=== PATIENT | female | born 1985 | race Caucasian/White ===

== ENCOUNTER 2021-07-08 13:11 | Emergency (ER) | payer OTHER, SELFPAY ==
[2021-07-08 13:16] VITALS: BP 136/80; PULSE 72; RESP 16; TEMP 36.6
--- NOTE | 2021-07-08 14:43 | ED.ANXIETY ---
HPI - Anxiety General Chief Complaint: Anxiety Stated Complaint: anxiety attack Time Seen by Provider: 07/08/21 14:03 Source: patient and RN notes reviewed Mode of arrival: ambulatory Limitations: no limitations History of Present Illness HPI narrative: 35 years old white female presents with sudden onset of hyperventilation, aches left upper extremity, jittery inside, shaking outside, lightheadedness numbness of the face. Started 1-1/2-hour prior to arrival, currently is improving. History of similar symptoms secondary to anxiety. Patient used to be on antianxiety medication which he is not taking for the last few months, boyfriend reported that patient going through a lot of stress lately. Mainly at work. Patient denies any chest pain, back pain, headache, fever, chills, nausea, vomiting, or abdominal pain. Patient does not smoke or drink or uses drugs, history of depression and anxiety, on no medication at home Related Data Allergies Allergy/AdvReac Type Severity Reaction Status Date / Time pertussis vaccine,fluid Allergy Severe BRAIN Verified 07/08/21 13:36 SWELLING Review of Systems Review of Systems: CONSTITUTIONAL: Denies fever, chills, or sweats. EYES: Denies visual changes, redness, or discharge. ENT: Denies rhinorrhea, congestion, sore throat, or otalgia. CARDIOVASCULAR: Denies chest pain, palpitations, or edema. RESPIRATORY: Denies cough or dyspnea. GASTROINTESTINAL: Denies abdominal pain, nausea, vomiting, or diarrhea. GENITOURINARY: Denies dysuria or hematuria. SKIN: Denies rash or itching. MUSCULOSKELETAL: Denies back pain, joint pain, or myalgia. NEUROLOGIC: Denies headache, numbness, or weakness. PSYCHIATRIC: Denies anxiety or depression. PMFSH Social History Social History Smoking status: Former smoker Smoking end date: 11/29/11 Alcohol intake: current Exam Narrative: General appearance: Well-developed, well-nourished Skin: Normal color Head: Normocephalic, nontraumatic Eyes: Clear conjunctiva ENT: Oropharynx normal, ears normal, nose normal Neck: Supple, nontender Chest and respiratory: Airway patent, no respiratory distress, no accessory muscle use Heart: Regular rate/rhythm Abdomen: Soft, nontender, no organomegaly, quiet bowel sounds Vascular: Normal peripheral pulses, normal capillary refill. 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 1 mg Ativan orally ordered. Differential Diagnosis Differential diagnosis: Likely hyperventilation, panic disorder and acute anxiety Critical Care Time Critical Care Time Critical Care Time: No Discharge Plan Discharge Clinical Impression: Acute anxiety, Hyperventilation Patient Disposition: Home, Self-Care Condition: Improved Instructions: Antibiotic Form, Anxiety (ED) Additional Instructions: Return if symptoms are worsening , call your family physician for appointment, take Tylenol as as needed for aches and pain, continue home medications. Prescriptions: New clonazepam 0.25 mg tablet,disintegrating 0.25 mg PO BI
[2021-07-08] MEDS: LORazepam (*CRX) 0.5 MG TABLET 1 MG PO (14:46)
[2021-07-08 15:08] VITALS: BP 122/77; PULSE 65; RESP 16; O2SAT 100
== END 2021-07-08 15:09 | disposition home or self-care (01) ==
PROVIDERS: Emergency Provider Emergency Medicine
DX: F41.9 Anxiety disorder, unspecified (principal); R06.4 Hyperventilation; Z87.891 Personal history of nicotine dependence
CPT/HCPCS: 99283; A9270

== ENCOUNTER 2021-08-12 09:31 | Outpatient (CLI) | payer OTHER, SELFPAY ==
--- NOTE | ~2021-08-12 | XR_ITS ---
EXAMINATION: XR lumbar spine 2-3V EXAM DATE: 08/12/2021 10:01 INDICATION: Low back pain, right lower quadrant pain. TECHNIQUE: Lumber spine frontal, lateral, lateral L5-S1 projections for interpretation. There is no prior study for comparison. FINDINGS: The vertebral bodies are aligned in the AP dimension. Vertebral body and disc heights are well-maintained. Mild lower lumbar facet arthropathy. No spondylolysis. Sacrum, sacroiliac joints, sa cral arcuate lines are intact. IMPRESSION: Mild lower lumbar facet arthropathy. Reviewed, dictated and finalized at location B.
--- NOTE | ~2021-08-12 | XR_ITS ---
EXAMINATION: XR soft tissue neck EXAM DATE: 08/12/2021 10:01 INDICATION: Low Back Pain, Rlq Pain, Mass R Side Of Neck . Technologist wrote patient has ultrasound. TECHNIQUE: Frontal and lateral projections of the neck soft tissue. There is no prior study for omayra winters. FINDINGS: Film was labeled by technologist as to location of a reported right neck mass. Soft tissue in this region is unremarkable. Please note that ultrasound is more sensitive and specific for soft tissue masses than x-ray. No calcifications in the region. Lung apices are clear. There is mild disc disease at C5-6. Mild reversal of normal cervical lordosis. Mild cervical arthropathy. IMPRESSION: Mild cervical spondylosis. Unremarkable soft tissue. Reviewed, dictated and finalized at location B.
== END 2021-08-12 09:32 | disposition home or self-care (01) ==
LOC: ANHIMG 09:36
PROVIDERS: PCP Emergency Medicine; Visit Provider Emergency Medicine
DX: M54.5 Low back pain (principal); R10.31 Right lower quadrant pain; R22.1 Localized swelling, mass and lump, neck; M47.896 Other spondylosis, lumbar region; M47.812 Spondylosis without myelopathy or radiculopathy, cervical region
CPT/HCPCS: 70360; 72100

== ENCOUNTER 2021-09-09 12:13 | Outpatient (CLI) | payer OTHER, SELFPAY ==
--- NOTE | ~2021-09-09 | US_ITS ---
EXAMINATION: US thyroid DATE: 09/09/2021 13:29 INDICATION: Abnormal labs. Thyroid nodule. TECHNIQUE: Multiple ultrasound images of the thyroid were obtained. COMPARISON: None. FINDINGS: The right thyroid lobe measures 4.3 x 1.2 x 1.3 cm. The left thyroid lobe measures 3.2 x 1.2 x 1.4 c m. There is normal echotexture and echogenicity throughout the thyroid gland. No discrete nodules id entified. Normal vascular flow is present. IMPRESSION: 1. Normal thyroid. Reviewed, dictated and finalized at location A. IMPRESSION: 1. Normal thyroid.
--- NOTE | ~2021-09-09 | US_ITS ---
EXAMINATION: US pelvic complete DATE: 09/09/2021 13:33 INDICATION: Pelvic pain. TECHNIQUE: Multiple transabdominal sonographic images of the pelvis were obtained. COMPARISON: None. FINDINGS: The uterus measures 7.8 x 4.2 x 5.7 cm. There is no free fluid in the pelvis. The endometrial complex measures 9 mm in thickness. The right ovary measures 2.2 x 1.5 x 1.7 cm. The left ovary measures 2.3 x 1.8 x 1.9 cm. There is normal vascular flow in the ovaries. IMPRESSION: 1. Normal pelvis. Reviewed, dictated and finalized at location A. IMPRESSION: 1. Normal pelvis.
--- NOTE | ~2021-09-09 | US_ITS ---
EXAMINATION: US renal BI EXAM DATE: 09/09/2021 13:45 INDICATION: Right lower quadrant pain. TECHNIQUE: Multiple grayscale and Doppler images of the kidneys were obtained (by a technologist who performed the scan) and subsequently reviewed. There is no prior study for comparison. FINDINGS: Right kidney: There is normal contour and echogenicity. It measures 8.5 x 4.1 x 5.3 centimeters. Th ere are no focal renal lesions identified. There is no hydronephrosis. Left kidney: There is normal contour and echogenicity. It measures 9.2 x 5.9 x 5.2 centimeters. The re are no focal renal lesions identified. There is no hydronephrosis. Bladder unremarkable. IMPRESSION: 1. Sonographically unremarkable kidneys. Reviewed, dictated and finalized at location A.
--- NOTE | ~2021-09-09 | US_ITS ---
EXAMINATION: US abdomen limited EXAM DATE: 09/09/2021 13:27 INDICATION: Abdominal pain all over. TECHNIQUE: Multiple grayscale and Doppler images of the abdomen right upper quadrant were obtained (b y a technologist who performed the scan) and subsequently reviewed. Comparison is made to prior exami nation from 10/22/2015. FINDINGS: The pancreatic head and body are normal in appearance. The pancreatic tail is not visualized. The l iver has normal echogenicity and contour. There are no focal liver lesions identified. There is no evidence of intrahepatic biliary duct dilation. Portal venous flow was seen in the hepatopedal, nor mal direction and has normal Doppler waveform. No right-sided hydronephrosis. Common bile duct measures 3 mm, which is normal. The gallbladder wall is normal in thickness, with ex pected amount of distention. No sonographic evidence of pericholecystic fluid. There is no cholelit hiases. Technologist performing exam reports patient did not demonstrate sonographic Taveras's sign. Please note that this sign is less reliable in patients who have received pain medication. IMPRESSION: Unremarkable abdominal ultrasound exam. Reviewed, dictated and finalized at location A.
== END 2021-09-09 12:14 | disposition home or self-care (01) ==
PROVIDERS: PCP Emergency Medicine; Visit Provider Emergency Medicine
DX: R10.9 Unspecified abdominal pain (principal); E04.1 Nontoxic single thyroid nodule
CPT/HCPCS: 76536; 76705; 76775; 76856

== ENCOUNTER 2022-01-07 08:57 | Outpatient (CLI) | payer OTHER, SELFPAY ==
--- NOTE | ~2022-01-07 | XR_ITS ---
EXAMINATION: XR chest 2V EXAM DATE: 01/07/2022 09:13 INDICATION: Shortness Of Breath, pt. Denies Any Hx TECHNIQUE: Frontal and lateral projections of the chest obtained and reviewed. Comparison is made to prior examination from 01/13/2017. FINDINGS: The lungs are clear. There are no pleural effusions. The cardiomediastinal silhouette is within normal limits. There is no pneumothorax suspected. The bones and soft tissues are unremarkab le. IMPRESSION: Unremarkable chest x-ray exam. Reviewed, dictated and finalized at location B. ERN CUTTER
[2022-01-07 09:47] LABS: Cholesterol 254 mg/dL (0-200); HDL Direct 78 mg/dL; Triglycerides 90 mg/dL (<150)
[2022-01-07 10:00] LABS: LDL Cholesterol Direct 130 mg/dL
[2022-01-07 10:19] LABS: Total Triiodothyronine (T3) 1.12 NG/ML (0.97-1.69)
[2022-01-07 11:23] LABS: Free T4 Free Thyroxine 0.78 ng/mL (0.78-2.19)
[2022-01-10 05:51] LABS: Thyroid Peroxidase Antibodies <1 IU/mL (<9)
== END 2022-01-07 08:58 | disposition home or self-care (01) ==
LOC: ANHIMG 09:02
PROVIDERS: PCP Emergency Medicine; Visit Provider Emergency Medicine
DX: E78.5 Hyperlipidemia, unspecified (principal); R06.09 Other forms of dyspnea
CPT/HCPCS: 36415; 71046; 80061; 84439; 84443; 84480; 86376

== ENCOUNTER 2022-05-20 10:14 | Outpatient (CLI) | payer OTHER, SELFPAY ==
[2022-05-20 11:06] LABS: Alanine Aminotransferase 10 U/L (6-35); Albumin Level 4.5 g/dL (3.5-5.1); Alkaline Phosphatase 52 U/L (38-126); Anion Gap 4 mmol/L (8-16); Aspartate Amino Transferase 17 U/L (14-36); Bilirubin,Total 0.4 mg/dL (0.2-1.3); Blood Urea Nitrogen 12 mg/dL (7-17); Calcium 8.6 mg/dL (8.4-10.2); Carbon Dioxide 27 mmol/L (22-30); Chloride 106 mmol/L (98-107); Estimated Glomerular Filt Rate > 60; Glucose 87 mg/dL (65-110); Sodium 137 mmol/L (137-145)
[2022-05-20 11:27] LABS: Free T4 Free Thyroxine 0.76 ng/mL (0.78-2.19)
[2022-05-22 13:53] LABS: Triiodothyronine T3 Free 2.6 pg/mL (2.3-4.2)
[2022-05-23 04:24] LABS: Thyroid Peroxidase Antibodies <1 IU/mL (<9)
== END 2022-05-20 10:15 | disposition home or self-care (01) ==
LOC: ANHLAB 10:19
PROVIDERS: PCP Emergency Medicine; Visit Provider Nurse Practitioner
DX: E03.9 Hypothyroidism, unspecified (principal)
CPT/HCPCS: 36415; 80053; 84439; 84443; 84481; 86376

== ENCOUNTER 2022-05-28 10:50 | Outpatient (CLI) | payer OTHER, SELFPAY ==
--- NOTE | ~2022-05-28 | XR_ITS ---
EXAMINATION:XR cervical spine 4-5V DATE: 05/28/2022 11:02 INDICATION: Neck pain TECHNIQUE: AP, lateral, lateral swimmers and odontoid views of the cervical spine are provided. COMPARISON: 08/12/2021 FINDINGS: There is reversal of normal cervical lordosis. Bone alignment is normal. The odontoid is in tact. No fracture is identified. There is unchanged mild loss of intervertebral disc space height at C5-6. The vertebral body heights are maintained. Prevertebral soft tissues are normal. IMPRESSION: 1. Mild cervical spondylosis without acute findings or significant interval change. Reviewed, dictated and finalized at location F. IMPRESSION: 1. Mild cervical spondylosis without acute findings or significant interval salvador e.
== END 2022-05-28 10:51 | disposition home or self-care (01) ==
LOC: ANHIMG 10:52
PROVIDERS: PCP Emergency Medicine; Visit Provider Emergency Medicine
DX: M47.812 Spondylosis without myelopathy or radiculopathy, cervical region (principal)
CPT/HCPCS: 72050

== ENCOUNTER 2022-06-04 11:50 | Emergency (ER) | payer OTHER, SELFPAY ==
--- NOTE | ~2022-06-04 | XR_ITS ---
EXAMINATION: XR chest 2V DATE: 06/04/2022 12:52 INDICATION: Heart palpitations, left-sided jaw pain TECHNIQUE: Frontal and lateral views of the chest are obtained COMPARISON: 01/07/2022 FINDINGS: The lungs are free of acute opacities. No pleural effusion or pneumothorax. The cardiomedia stinal silhouette is normal. There is mild S-shaped curvature of the thoracic spine. IMPRESSION: 1. No acute cardiopulmonary abnormality. Reviewed, dictated and finalized at location B.
[2022-06-04 12:05] VITALS: PULSE 67; RESP 15; O2SAT 98
[2022-06-04 12:06] VITALS: BP 137/78; PULSE 67; RESP 12; O2SAT 99
--- NOTE | 2022-06-04 12:07 | ECG_ITS ---
Measurements Intervals [place] Rate: 66 P: 65 ND: 151 QRS: 13 QRSD: 85 T: 46 QT: 394 QTc: 415 Interpretive Statements SINUS RHYTHM NORMAL ECG Electronically Signed On 06-04-2022 13:03:54 CDT by Jorge Hall D.O.
--- NOTE | 2022-06-04 12:12 | PC.NURSE ---
PT REPORTS TO ERP ABOUT PAPLPITATIONS AND NEAR SYNCOPE THEN INFORMS HIM OF BEING TREATED FOR MIGRAINES AND AND HAVING A HERNANDEZ FOR SEVERAL DAYS. PT IS NOT IN ANY DISTRESS, SKIN PWD AND GAIT WAS STEADY, NSR ON MONITOR.
[2022-06-04] MEDS: SODIUM CHLORIDE 0.9% IV 1,000 ML 999 ML IV CONT (12:52)
[2022-06-04] MEDS: diphenhydrAMINE HCl INJ 50 MG/ML VIAL 25 MG IV PUSH (12:52)
[2022-06-04] MEDS: METOCLOPRAMIDE HCL INJ 10 MG/2 ML VIAL IV PUSH (12:52)
[2022-06-04] MEDS: KETOROLAC 30 MG/ML VIAL (*BKC) IV PUSH (12:52)
[2022-06-04 12:54] LABS: Basophils Absolute Auto 0.1 K/mm3 (0.0-0.1); Eosinophils Absolute Auto 0.1 K/mm3 (0-0.3); Eosinophils Percent Auto 1.7 % (0-4.4); Hematocrit 42.3 % (37.0-47.0); Hemoglobin 13.6 g/dL (12.0-15.0); Immature Granulocyte Absolute 0.02 K/mm3 (0.00-0.031); Immature Granulocyte Percent A 0.3 % (0-0.5); Lymphocytes Absolute Auto 1.85 K/mm3 (0.9-3.2); Lymphocytes Percent Auto 25.8 % (18.3-44.2); Mean Corpuscular HGB Conc 32.2 g/dl (32-36); Mean Corpuscular Hemoglobin 28.2 pg (26-34); Mean Corpuscular Volume 87.6 fl (80-100); Mean Platelet Volume 10.1 fl (7.4-10.4); Monocytes Absolute Auto 0.4 K/mm3 (0.1-0.6); Monocytes Percent Auto 6.1 % (2.6-8.5); Neutrophils Absolute Auto 4.7 K/mm3 (1.3-6.7); Neutrophils Percent Auto 65.1 % (45.5-73.1); Platelet Count Result 227 k/mm3 (150-375); Red Blood Count 4.83 M/mm3 (4.2-5.4); Red Cell Distribution Width 13.1 % (11.5-14.5); White Blood Count 7.2 K/mm3 (4.5-10.0)
[2022-06-04 13:08] LABS: Anion Gap 4 mmol/L (8-16); Blood Urea Nitrogen 12 mg/dL (7-17); Calcium 8.7 mg/dL (8.4-10.2); Carbon Dioxide 28 mmol/L (22-30); Chloride 105 mmol/L (98-107); Estimated CRCL calculation 78 ml/min; Estimated Glomerular Filt Rate > 60; Glucose 88 mg/dL (65-110); Potassium 4.1 mmol/L (3.4-5.0); Sodium 137 mmol/L (137-145)
--- NOTE | 2022-06-04 13:18 | ED.ARRPALP ---
HPI - Arrhythmia/Palpitations General Chief Complaint: Arrhythmia/Palpitations Stated Complaint: palpations Time Seen by Provider: 06/04/22 11:58 History of Present Illness HPI narrative: Patient is a 36-year-old female who presents ER with multiple complaints. Main issue is that today when she woke up she became very dizzy and felt like her heart was racing. It lasted for a matter of seconds and then improved. She then developed some muffled hearing in her left ear. No sinus congestion or sore throat or productive cough. No focal weakness in arm or leg. No slurred speech. No chest pain or chest pressure. She does report history of anxiety but does not think she had a panic attack. She reports over the last 2 days she has not been eating or drinking well nor she been sleeping well. She reports she has had a throbbing headache on the left side consistent with her migraines. She has not any pain medication. Patient reports she had some coffee today but no other food. Related Data Allergies Allergy/AdvReac Type Severity Reaction Status Date / Time pertussis vaccine,fluid Allergy Severe BRAIN Verified 07/08/21 13:36 SWELLING Review of Systems Review of Systems: All systems reviewed & are unremarkable except as noted in HPI and below Constitutional: Constitutional: Denies chills, Reports fatigue and Denies fever(s) Eyes: Eyes: Denies change in vision ENT: Denies nasal congestion and Denies sore throat Comments: Muffled hearing left ear Cardiovascular: Cardiovascular: Denies chest pain, Reports rapid heart rate and Denies radiating jaw, neck or arm pain Respiratory: Respiratory: Denies cough, Denies dyspnea and Denies wheezing Gastrointestinal: Gastrointestinal: Denies abdominal pain, Denies nausea and Denies vomiting Neurologic: Denies syncope, Reports headache(s), Denies focal weakness and Denies numbness PMFSH Past Medical History Medical History (Updated 06/04/22 @ 13:52 by Clinton Gar MD) Anxiety Depression Hypothyroidism Migraine headache Surgical History Surgical History (Updated 06/04/22 @ 13:23 by Clinton Gar MD) No pertinent past surgical history Social History Social History Smoking status: Former smoker Smoking end date: 11/29/11 Alcohol intake: current Exam Narrative: GENERAL: Well-appearing, well-nourished, and in no acute distress. HEAD: Normocephalic, atraumatic. ENT: TMs normal bilaterally. Ear canals free of cerumen. NECK: Supple. CHEST: Clear to auscultation. No respiratory distress. HEART: Regular rate and rhythm. No murmur heard. Normal peripheral pulses. ABDOMEN: Soft, nontender, nondistended. EXTREMITIES: Normal range of motion. No edema. SKIN: Warm, dry, no rash. NEURO: Alert and oriented x3. PSYCH: Normal mood and affect. Course Course Emergency Course: Patient feels much better. Migraine resolved. Discharge home. Vital Signs Vital signs: Vital Signs Pulse Rate 67 06/04/22 12:05 Respiratory Rate 15 06/04/22 12:05 Pulse Oximetry 98 06/04/22 12:05 Pulse Rate 67 06/04/22 12:06 Respiratory Rate 12 06/04/22 12:06 Blood Pressure 137/78 06/04/22 12:06 Pulse Oximetry 99 06/04/22 12:06 MDM - Arrhythmia/Palpitations Lab Data Result diagrams: 06/04/22 12:45 06/04/22 12:45 Labs: Lab Results 06/04/22 06/04/22 Range/Units 12:45 12:45 WBC 7.2 (4.5-10.0) K/mm3 RBC 4.83 (4.2-5.4) M/mm3 Hgb 13.6 (12.0-15.0) g/dL Hct 42.3 (37.0-47.0) % MCV 87.6 (80-100) fl MCH 28.2 (26-34) pg MCHC 32.2 (32-36) g/dl RDW 13.1 (11.5-14.5) % Plt Count 227 (150-375) k/mm3 MPV 10.1 (7.4-10.4) fl Immature Gran % (Auto) 0.3 (0-0.5) % Neut % (Auto) 65.1 (45.5-73.1) % Lymph % (Auto) 25.8 (18.3-44.2) % [place] % (Auto) 6.1 (2.6-8.5) % Eos % (Auto) 1.7 (0-4.4) % Baso % (Auto) 1.0 (0.2-1.2)
[2022-06-04 14:01] VITALS: BP 109/70; PULSE 62; RESP 16; O2SAT 97
== END 2022-06-04 14:02 | disposition home or self-care (01) ==
PROVIDERS: Emergency Provider Emergency Medicine; PCP Emergency Medicine
DX: R00.2 Palpitations (principal); R51.9 Headache, unspecified; Z87.891 Personal history of nicotine dependence
CPT/HCPCS: 36415; 71046; 80048; 85025; 93005; 96361; 96374; 96375; 99284; J1200; J1885; J2765; J7030

== ENCOUNTER 2022-06-19 15:26 | Outpatient (CLI) | payer OTHER, SELFPAY ==
--- NOTE | ~2022-06-19 | CT_ITS ---
EXAMINATION: CT BRAIN W/O DATE: 06/19/2022 15:44 INDICATION: Migraine headaches TECHNIQUE: Computed tomography (CT) of the head was performed without intravenous contrast. The dose- length product was 529.67 mGy-cm. Automated exposure control and iterative reconstruction technique w ere employed. COMPARISON: CT dated 08/11/2007 FINDINGS: Normal brain parenchymal volume for age. Normal velasco-white differentiation. No acute intrac ranial hemorrhage, infarction, mass or mass effect. No ventriculomegaly or midline shift. Midline sagittal images demonstrate a normal corpus callosum, c raniovertebral junction and sella turcica. Basilar cisterns are patent. Paranasal sinuses and mastoids are pneumatized. No depressed skull fractures. IMPRESSION: 1. No acute intracranial abnormality. Reviewed, dictated and finalized at location A.
== END 2022-06-19 15:27 | disposition home or self-care (01) ==
PROVIDERS: PCP Emergency Medicine; Visit Provider Emergency Medicine
DX: G43.909 Migraine, unspecified, not intractable, without status migrainosus (principal)
CPT/HCPCS: 70450

== ENCOUNTER 2022-08-05 08:58 | Outpatient (CLI) | payer OTHER, SELFPAY ==
--- NOTE | ~2022-08-05 | US_ITS ---
EXAMINATION: US abdomen complete DATE: 08/05/2022 10:25 INDICATION: RLQ PAIN TECHNIQUE: Multiple grayscale and Doppler ultrasound images of the abdomen were obtained. COMPARISON: 09/09/2021. FINDINGS: The visualized portions of the pancreas are normal. The liver is normal with normal echogen icity and echotexture. No surface nodularity. Normal hepatopetal flow in the main portal vein. The ga llbladder is normal with no abnormal wall thickening, pericholecystic fluid or stones. The common jamie e duct measures 4 mm. There was no sonographic Taveras sign. The visualized portions of the aorta and inferior vena cava are normal. The right kidney measures 9.1 x 3.3 x 4.1. The left kidney measures 10.6 x 4.1 x 5.8. The kidneys dem onstrate normal parenchymal echogenicity. There is no hydronephrosis. The spleen is normal in appeara nce and measures 9.9 cm. The right lower quadrant was sonographically unremarkable. IMPRESSION: Normal abdominal ultrasound findings. Reviewed, dictated and finalized at location K.
--- NOTE | ~2022-08-05 | US_ITS ---
EXAMINATION: US pelvic complete DATE: 08/05/2022 10:25 INDICATION: RLQ PAIN TECHNIQUE: Multiple transabdominal and endovaginal sonographic images of the pelvis were obtained. COMPARISON: None. FINDINGS: Uterus: 7.7 x 3.8 x 5.3 cm. Endometrial complex measures 6 mm. Right Ovary: 3.2 x 1.9 x 2.8 cm. Vascular flow is present. 1.6 cm corpus luteal cyst Left Ovary: 2.6 x 1.4 x 1.9 cm. Vascular flow is present. There is no free fluid in the pelvis. IMPRESSION: Normal pelvic sonogram findings. Reviewed, dictated and finalized at location K.
== END 2022-08-05 08:59 | disposition home or self-care (01) ==
PROVIDERS: PCP Emergency Medicine; Visit Provider Emergency Medicine
DX: R10.31 Right lower quadrant pain (principal)
CPT/HCPCS: 76700; 76856

== ENCOUNTER 2022-08-15 10:07 | Emergency (ER) | payer OTHER, SELFPAY ==
[2022-08-15 10:44] VITALS: BP 123/72; PULSE 64; RESP 18; TEMP 36.6; O2SAT 100
--- NOTE | 2022-08-15 11:14 | ED.GENADULT ---
HPI - General Adult General Chief complaint: Upper Respiratory Infection Stated complaint: sorethroat,fatigue Time Seen by Provider: 08/15/22 10:35 History of Present Illness HPI narrative: 36 y/o female. PMHx MDD, LOGAN, Hypothyroid. Presents to [facility] today with acute complaints of sore throat and 'hoarse voice', worsening in the past 48 hours. No fevers. No dyspnea, dysphagia, involuntary drooling. No neck masses or tenderness. No cough, congestion. No HERNANDEZ, otalgia. She reports mild reliefs w/home OTC remedies. No known ill contacts. 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 No additional acute c/o upon PE. Related Data Home Medications Medication Instructions Recorded Confirmed levothyroxine 50 mcg tablet 50 mcg DAILY 08/15/22 08/15/22 rosuvastatin 40 mg tablet 40 mg DAILY 08/15/22 08/15/22 segesterone acet 0.15 mg-ethinyl 1 vag ring vaginal MONTHLY 08/15/22 08/15/22 estradiol 0.013 mg/24 hr vaginal ring ([place]) sertraline 50 mg tablet 50 mg DAILY 08/15/22 08/15/22 Allergies Allergy/AdvReac Type Severity Reaction Status Date / Time pertussis vaccine,fluid Allergy Severe BRAIN Verified 08/15/22 11:08 SWELLING Review of Systems Review of Systems: CONSTITUTIONAL: Denies fever, chills, sweats. EYES: Denies visual changes, redness, discharge. ENT: Denies rhinorrhea, congestion, otalgia. Positive Sore throat. CARDIOVASCULAR: Denies chest pain, palpitations, edema. RESPIRATORY: Denies dyspnea, wheezing, cough GASTROINTESTINAL: Denies abdominal pain, nausea, vomiting, diarrhea. GENITOURINARY: Denies dysuria, hematuria, abnormal discharge SKIN: Denies rash or itching. MUSCULOSKELETAL: Denies acute back pain, joint pain, or myalgia. NEUROLOGIC: Denies numbness, or focal weakness. PSYCHIATRIC: Denies anxiety or depression. [facility] Past Medical History Medical History Anxiety Depression Hypothyroidism Migraine headache Surgical History Surgical History No pertinent past surgical history Social History Social History Smoking status: Former smoker Smoking end date: 11/29/11 Alcohol intake: current Exam Narrative: GENERAL: This is a well-nourished, well-developed adult, in no apparent distress. HEAD: normocephalic. EYES: Sclera clear/white. EARS: External ears normal, auditory canals clear and without drainage, TMs normal. NOSE: External nose normal. Positive Rhinorrhea, no obstruction, nares patent. THROAT: Mucous membranes moist, posterior pharynx erythematous. No exudates. Palate soft. Handling oral secretions. NECK: Neck supple, non-tender without lymphadenopathy, masses or thyromegaly. CARDIOVASCULAR: Regular rate and rhythm without murmurs, gallops, or rubs. RESPIRATORY: Clear to auscultation. GASTROINTESTINAL: Abdomen soft. SKIN: warm, intact with no suspicious lesions or rash. NEURO: Alert and age appropriate. Course Course Level of Care: Express Care Visit Vital Signs Vital signs: Vital Signs Temperature 36.6 C 08/15/22 10:44 Pulse Rate 64 08/15/22 10:44 Respiratory Rate 18 08/15/22 10:44 Blood Pressure 123/72 08/15/22 10:44 Pulse Oximetry 100 08/15/22 10:44 Oxygen Delivery Room Air 08/15/22 10:44 Temperature 36.6 C 08/15/22 10:44 Pulse Rate 64 08/15/22 10:44 Respiratory Rate 18 08/15/22 10:44 Blood Pressure 123/72 08/15/22 10:44 Pulse Oximetry 100 08/15/22 10:44 Oxygen Delivery Room Air 08/15/22 10:44 Medical Decision Making [facility] Narrative Medical decision making narrative: -Afebrile, non-tachycardic, appears non-toxic. -No hypoxemia, no airway distress. -Rapid Strep: Negative. -Start oral Medrol & daily antihistamine X 14 days. -Suspect viral Pharyngitis: additional Strep Cx to be
== END 2022-08-15 11:23 | disposition home or self-care (01) ==
PROVIDERS: Emergency Provider Nurse Practitioner Adult Health; PCP Emergency Medicine
DX: J02.9 Acute pharyngitis, unspecified (principal); E03.9 Hypothyroidism, unspecified; Z87.891 Personal history of nicotine dependence
CPT/HCPCS: 87081; 87880; 99213; G0463

== ENCOUNTER 2022-10-21 11:07 | Emergency (ER) | payer OTHER, SELFPAY ==
--- NOTE | ~2022-10-21 | CT_ITS ---
EXAMINATION: CT abdomen pelvis w con DATE: 10/21/2022 12:32 INDICATION: Abdomen pain. Bloody diarrhea. TECHNIQUE: Computed tomography (CT) of the abdomen and pelvis was performed with 100 cc Omnipaque 350 intravenous contrast. The dose-length product was 687.20 mGy-cm. Automated exposure control and iter ative reconstruction technique were employed. COMPARISON: None. FINDINGS: Lung bases are unremarkable. Heart size normal. No significant pleural or pericardial effus ion. Small fat-containing umbilical hernia. There is abnormal thickening of the descending and proxim al sigmoid colon, consistent with colitis. Gallbladder is present. The liver, spleen, pancreas, adren al glands are unremarkable. There are nonobstructing bilateral renal stones. No significant vascular abnormality. No lymphadenopathy. There is abnormally thickened segment of small bowel in the pelvis. No obstruction. No free air or free fluid. There is a diaphragm in the vagina. No focal lytic or sadie tic lesions. IMPRESSION: 1. Abnormally thickened segment of distal small bowel and left colon, suspicious for infectious enter ocolitis. Differential diagnosis includes inflammatory bowel disease (i.e. Crohn's disease). 2: Nonobstructing bilateral nephrolithiasis. Reviewed, dictated and finalized at location B. MIXER IMPRESSION: 1. Abnormally thickened segment of distal small bowel and left colon, suspiciou s for infectious enterocolitis. Differential diagnosis includes inflammatory alexei wel disease (i.e. Crohn's disease). 2: Nonobstructing bilateral nephrolithiasis.
[2022-10-21 11:31] VITALS: BP 155/91; PULSE 66; RESP 20; TEMP 36.8; O2SAT 99
[2022-10-21 11:45] LABS: Basophils Percent Auto 0.2 % (0.2-1.2); Eosinophils Absolute Auto 0.1 K/mm3 (0-0.3); Eosinophils Percent Auto 0.7 % (0-4.4); Hematocrit 39.7 % (37.0-47.0); Hemoglobin 13.2 g/dL (12.0-15.0); Immature Granulocyte Absolute 0.04 K/mm3 (0.00-0.031); Immature Granulocyte Percent A 0.3 % (0-0.5); Lymphocytes Absolute Auto 2.64 K/mm3 (0.9-3.2); Lymphocytes Percent Auto 20.4 % (18.3-44.2); Mean Corpuscular HGB Conc 33.2 g/dl (32-36); Mean Corpuscular Hemoglobin 28.5 pg (26-34); Mean Corpuscular Volume 85.7 fl (80-100); Mean Platelet Volume 9.6 fl (7.4-10.4); Monocytes Absolute Auto 0.6 K/mm3 (0.1-0.6); Monocytes Percent Auto 4.6 % (2.6-8.5); Neutrophils Absolute Auto 9.6 K/mm3 (1.3-6.7); Neutrophils Percent Auto 73.8 % (45.5-73.1); Platelet Count Result 305 k/mm3 (150-375); Red Blood Count 4.63 M/mm3 (4.2-5.4); Red Cell Distribution Width 12.6 % (11.5-14.5)
[2022-10-21 11:57] LABS: Alanine Aminotransferase 18 U/L (6-35); Albumin Level 4.1 g/dL (3.5-5.1); Alkaline Phosphatase 81 U/L (38-126); Anion Gap 5 mmol/L (8-16); Aspartate Amino Transferase 22 U/L (14-36); Bilirubin,Total 0.3 mg/dL (0.2-1.3); Blood Urea Nitrogen 11 mg/dL (7-17); Calcium 9.1 mg/dL (8.4-10.2); Carbon Dioxide 24 mmol/L (22-30); Chloride 104 mmol/L (98-107); Estimated CRCL calculation 98 ml/min; Estimated Glomerular Filt Rate > 60; Glucose 86 mg/dL (65-110); Lipase 111 U/L (23-300); Potassium 3.9 mmol/L (3.4-5.0); Sodium 133 mmol/L (137-145)
[2022-10-21 12:26] LABS: Appearance Urine Slightly Cloudy (Clear); Bilirubin Urine Negative (Negative); Blood Urine Negative (Negative); Color Urine Light Yellow (Yellow); Glucose Urine UA Negative (Negative); Ketones Urine Negative (Negative); Leukocyte Esterase Ur Negative LEU/UL (Negative); Nitrate Urine Negative (Negative); Protein Urine Negative (Negative); Urobilinogen Urine 0.2 mg/dL (<2.0); pH Urine 6.5 (5.0-9.0)
[2022-10-21] MEDS: SODIUM CHLORIDE 0.9% IV 1,000 ML 999 ML IV CONT (12:34)
[2022-10-21] MEDS: FAMOTIDINE 20 MG/2 ML VIAL IV PUSH (12:35)
[2022-10-21] MEDS: ONDANSETRON INJ 4 MG/2 ML VIAL IV PUSH (12:35)
[2022-10-21 12:36] LABS: Bacteria Urine Trace /hpf; Mucus Urine Few /lpf; RBC Urine 0-2 /hpf (0-2); Squamous Epithelial Cell Urine Occasional /hpf (Few)
[2022-10-21 12:37] LABS: Add Urine Microscopic? YES
--- NOTE | 2022-10-21 13:03 | ED.NAVMDI ---
HPI - Nausea/Vomiting/Diarrhea General Chief complaint: Nausea/Vomiting/Diarrhea Stated complaint: ?food poisoning Time Seen by Provider: 10/21/22 11:30 Source: patient Mode of arrival: ambulatory Limitations: no limitations History of Present Illness HPI Narrative: This is a 37 year old female that presents to the ER for abdominal pain and diarrhea. Ongoing since last night. Reports last night she ate some chicken pasta and shortly after started to feel abdominal discomfort. Reports several episodes of nausea, vomiting and diarrhea. Reports this morning she has continued to have diarrhea with bright red blood in the stool. She is no longer vomiting. Denies fever. Related Data Home Medications Medication Instructions Recorded Confirmed levothyroxine 50 mcg tablet 50 mcg DAILY 08/15/22 08/15/22 rosuvastatin 40 mg tablet 40 mg DAILY 08/15/22 08/15/22 segesterone acet 0.15 mg-ethinyl 1 vag ring vaginal MONTHLY 08/15/22 08/15/22 estradiol 0.013 mg/24 hr vaginal ring ([facility]) sertraline 50 mg tablet 50 mg DAILY 08/15/22 08/15/22 Allergies Allergy/AdvReac Type Severity Reaction Status Date / Time pertussis vaccine,fluid Allergy Severe BRAIN Verified 08/15/22 11:08 SWELLING Review of Systems Review of Systems: CONSTITUTIONAL: Denies fever GASTROINTESTINAL: Reports abdominal pain, nausea, vomiting, and diarrhea. GENITOURINARY: Denies dysuria All systems reviewed & are unremarkable except as noted in HPI and below PMFSH Past Medical History Medical History Anxiety Depression Hypothyroidism Migraine headache Surgical History Surgical History No pertinent past surgical history Social History Social History Smoking status: Former smoker Smoking end date: 11/29/11 Alcohol intake: current Exam Narrative: GENERAL: Well-appearing, well-nourished, and in no acute distress. HEAD: Normocephalic, atraumatic. EYES: EOMI. CHEST: Clear to auscultation. No respiratory distress. No wheezes rales or rhonchi HEART: Regular rate and rhythm. No murmur heard. Normal peripheral pulses. ABDOMEN: Soft, nontender, nondistended, normal active bowel sounds. EXTREMITIES: Normal range of motion. No edema. SKIN: Warm, dry, no rash. NEURO: No focal deficits. Alert and oriented x3. PSYCH: Normal mood and affect Course Vital Signs Vital signs: Vital Signs Temperature 98.2 F 10/21/22 11:31 Pulse Rate 66 10/21/22 11:31 Respiratory Rate 20 10/21/22 11:31 Blood Pressure 155/91 H 10/21/22 11:31 Pulse Oximetry 99 10/21/22 11:31 Oxygen Delivery Room Air 10/21/22 11:31 Temperature 98.2 F 10/21/22 11:31 Pulse Rate 66 10/21/22 11:31 Respiratory Rate 20 10/21/22 11:31 Blood Pressure 155/91 H 10/21/22 11:31 Pulse Oximetry 99 10/21/22 11:31 Oxygen Delivery Room Air 10/21/22 11:31 MDM - Nausea/Vomiting/Diarrhea MDM Narrative Medical decision making narrative: Patient presents the emergency department for vomiting and diarrhea ongoing since last night. Reports bright red blood in the stool. She is afebrile and nontoxic-appearing. Her vitals are stable. CBC with mild leukocytosis to 13. Metabolic panel and lipase without concerning findings. UA without evidence of infection. Bedside test is negative. CT scan of the abdomen and pelvis shows findings consistent with infectious enterocolitis. Spoke with Dr. Luna about patient and workup. Patient will be given option for inpatient management with IV antibiotics versus discharge with oral antibiotics. Patient wishes to be discharged and trial outpatient management at this time. She will be given prescription for stool cultures. She is to follow-up with gastroenterology. She was given warnings to return to the ER Lab Data Attestation: I reviewed the patient's
[2022-10-21 15:31] VITALS: BP 139/86; PULSE 72; RESP 16; O2SAT 99
== END 2022-10-21 15:31 | disposition home or self-care (01) ==
PROVIDERS: Physician Assistant; Emergency Provider Emergency Medicine; PCP Emergency Medicine
DX: K52.9 Noninfective gastroenteritis and colitis, unspecified (principal); E03.9 Hypothyroidism, unspecified; F41.9 Anxiety disorder, unspecified; F32.A Depression, unspecified; Z87.891 Personal history of nicotine dependence; N20.0 Calculus of kidney
CPT/HCPCS: 36415; 74177; 80053; 81001; 81025; 83690; 85025; 96361; 96365; 96375; 99284; J0131; J2405; J7030; Q9967

== ENCOUNTER 2022-10-21 21:15 | Observation (INO) | payer OTHER, SELFPAY ==
[2022-10-21 21:36] VITALS: BP 139/85; PULSE 77; RESP 18; TEMP 36.6; O2SAT 100
--- NOTE | 2022-10-21 22:12 | PC.NURSE ---
Pt report she was in ED earlier and sent home with abx. Reports she felt worse after going home and nauseous after abx.
--- NOTE | 2022-10-21 22:47 | PC.NURSE ---
patient states that she was here earlier, provided a urine specimen and CT scan was done and they did not ask if
[2022-10-21 22:48] VITALS: BP 136/79; PULSE 74
--- NOTE | 2022-10-21 22:51 | ED.NAVMDI ---
HPI - Nausea/Vomiting/Diarrhea General Chief complaint: Nausea/Vomiting/Diarrhea Stated complaint: diarrhea Time Seen by Provider: 10/21/22 22:10 Source: RN notes reviewed History of Present Illness HPI Narrative: Patient presents emergency department from home for abdominal pain. Patient states that starting last night she was having abdominal pain nausea vomiting and diarrhea. She states that she had noted blood in her stool last night and continued to have pain today and came to the emergency department she states she was evaluated and found to have colitis at that time she was offered to stay in the hospital versus go home on p.o. antibiotics and elected to go home with p.o. antibiotics. Patient states she had returned home and had increasing abdominal pain with worsening cramping throughout the abdomen states it was associated with increased nausea states that she tried to eat and was unable to she denies any fevers or chills she states she did take her most recent course of antibiotics 2 hours ago states abdominal pain is described as cramping is diffuse throughout the abdomen Related Data Home Medications Medication Instructions Recorded Confirmed levothyroxine 50 mcg tablet 50 mcg DAILY 08/15/22 08/15/22 rosuvastatin 40 mg tablet 40 mg DAILY 08/15/22 08/15/22 segesterone acet 0.15 mg-ethinyl 1 vag ring vaginal MONTHLY 08/15/22 08/15/22 estradiol 0.013 mg/24 hr vaginal ring ([facility]) sertraline 50 mg tablet 50 mg DAILY 08/15/22 08/15/22 Allergies Allergy/AdvReac Type Severity Reaction Status Date / Time pertussis vaccine,fluid Allergy Severe BRAIN Verified 10/21/22 21:40 SWELLING Review of Systems Review of Systems: Gen.: Denies fevers or chills ENT: Denies congestion Respiratory: Denies shortness of breath or cough CV: Denies chest pain or palpitations GI: See HPI denies burning, urgency, frequency or hematuria Musculoskeletal: Denies back pain or muscle pain Neuro: Denies numbness, tingling, weakness or focal weakness Skin: Denies rash Except as documented, all other systems reviewed and negative PMFSH Past Medical History Medical History Anxiety Depression Hypothyroidism Migraine headache Surgical History Surgical History No pertinent past surgical history Social History Social History Smoking status: Former smoker Smoking end date: 11/29/11 Alcohol intake: current Exam Narrative: APPEARANCE: No acute distress, nontoxic, resting in bed HEENT: Normocephalic, atraumatic, OMM RESPIRATORY: No respiratory distress, clear to auscultation bilaterally with no rhonchi wheezing or rales CARDIOVASCULAR: RRR s murmur ABDOMINAL: Soft nondistended diffusely tender palpation no rebound or guarding MUSCULOSKELETAl: Moves all extremities. No clubbing, cyanosis or edema. NEURO: Awake and alert. Following commands, speech normal, no focal deficits SKIN:: Warm, dry. Normal Color PSYCHIATRIC: Normal affect/mood Course Course Emergency Course: Reviewed previous ED record Discussed rest Dr. Patel presentation and work-up. Agrees admission patient started on Zosyn Discussed with patient and family results of workup and diagnosis. Discussed need for admission. Patient and family understand and agree to current treatment plan Vital Signs Vital signs: Vital Signs Temperature 98 F 10/21/22 21:36 Pulse Rate 77 10/21/22 21:36 Respiratory Rate 18 10/21/22 21:36 Blood Pressure 139/85 10/21/22 21:36 Pulse Oximetry 100 10/21/22 21:36 Oxygen Delivery Room Air 10/21/22 21:36 Temperature 98 F 10/21/22 21:36 Pulse Rate 78 10/21/22 22:54 Respiratory Rate 18 10/21/22 21:36 Blood Pressure 132/81 10/21/22 22:54 Pulse Oximetry 100 10/21/22 21:36 Oxygen Delivery Room Air 10/21/22 21:36
[2022-10-21 22:53] VITALS: BP 141/85; PULSE 75
[2022-10-21 22:54] VITALS: BP 132/81; PULSE 78
[2022-10-21 22:57] LABS: Basophils Percent Auto 0.3 % (0.2-1.2); Eosinophils Absolute Auto 0.2 K/mm3 (0-0.3); Eosinophils Percent Auto 1.8 % (0-4.4); Hematocrit 38.7 % (37.0-47.0); Hemoglobin 12.7 g/dL (12.0-15.0); Immature Granulocyte Absolute 0.03 K/mm3 (0.00-0.031); Immature Granulocyte Percent A 0.3 % (0-0.5); Lymphocytes Absolute Auto 2.46 K/mm3 (0.9-3.2); Lymphocytes Percent Auto 22.2 % (18.3-44.2); Mean Corpuscular HGB Conc 32.8 g/dl (32-36); Mean Corpuscular Hemoglobin 28.2 pg (26-34); Mean Platelet Volume 9.6 fl (7.4-10.4); Monocytes Absolute Auto 0.6 K/mm3 (0.1-0.6); Monocytes Percent Auto 5.4 % (2.6-8.5); Neutrophils Absolute Auto 7.8 K/mm3 (1.3-6.7); Platelet Count Result 265 k/mm3 (150-375); Red Cell Distribution Width 12.7 % (11.5-14.5); White Blood Count 11.1 K/mm3 (4.5-10.0)
[2022-10-21] MEDS: SODIUM CHLORIDE 0.9% IV 1,000 ML 999 ML IV CONT (22:57)
[2022-10-21] MEDS: MORPHINE SULFATE (*CRX) 4 MG/ML INJ IV PUSH (22:57)
[2022-10-21 23:07] LABS: Lactic Acid Reflex 1.3 mmol/L (0.7-2.0)
[2022-10-21 23:08] LABS: Alanine Aminotransferase 17 U/L (6-35); Albumin Level 3.8 g/dL (3.5-5.1); Alkaline Phosphatase 82 U/L (38-126); Anion Gap 7 mmol/L (8-16); Aspartate Amino Transferase 21 U/L (14-36); Bilirubin,Total 0.6 mg/dL (0.2-1.3); Blood Urea Nitrogen 9 mg/dL (7-17); Calcium 8.2 mg/dL (8.4-10.2); Carbon Dioxide 21 mmol/L (22-30); Chloride 107 mmol/L (98-107); Estimated CRCL calculation 98 ml/min; Estimated Glomerular Filt Rate > 60; Glucose 98 mg/dL (65-110); Lipase 92 U/L (23-300); Potassium 3.6 mmol/L (3.4-5.0); Sodium 135 mmol/L (137-145)
[2022-10-22 00:43] VITALS: BP 132/69; PULSE 63; RESP 16; O2SAT 98
--- NOTE | 2022-10-22 01:01 | ADMGEN ---
This patient, Erica Conroy, was admitted to 2 Medical Room 259-. Patient/family oriented to hospital policies and general routines including ID bracelet, bed and alarms, visiting hours, pain management, procedures, bathroom and other care routines, personal items, smoking policy, room service/diet, and visiting hours. Information on how to activate the Rapid Response Team has been discussed. Patient/Family are encouraged to report perceived risks to care and to ask questions if they do not understand what they are told or what they should do.
[2022-10-22] MEDS: SODIUM CHLORIDE 0.9% IV 1,000 ML 125 ML IV CONT ×3 (01:33→20:16)
[2022-10-22] MEDS: ONDANSETRON INJ 4 MG/2 ML VIAL IV PUSH (01:40)
--- NOTE | 2022-10-22 01:43 | PM.IMHP ---
H&P: HPI History of Present Illness Date/Time: 10/22/22 01:43 Chief Complaint: Abdominal pain, diarrhea Narrative: 37-year-old female with past medical history of hypothyroidism and hyperlipidemia who presented to the ER with 2 days of nausea vomiting and diarrhea. The patient reports that on the evening of the after she had when out to dinner she developed some abdominal discomfort. Shortly thereafter she began having both dry heaves and diarrhea. She reported that she had so much diarrhea and dry heaves that she felt as if she may pass out. She had associated cold sweats. She reports that her abdominal pain was severe in intensity and felt like she was having contractions. She did not take any medications to help relieve her symptoms. She reports that the abdominal discomfort is in the periumbilical region. She reported that initially the diarrhea started out as brown watery but oz shortly thereafter became mixed with blood. The blood was initially more bright red in nature. She came to the ER during the afternoon hours and wanted to try to go home with oral antibiotics and was discharged with Flagyl and Cipro. She returned to the ER several hours later because soon after returning home and taking a dose of the antibiotics she began having increased nausea and more colicky severe abdominal pain. She thinks that the her symptoms were due to eating a pasta dish containing check and and pesto from a restaurant in [facility]. No one else in her family ate the same meal that she did. No one else has been ill. She denies any fevers. She has not had any travel. She has never had symptoms like this before. She denies any mucousy stools. She does occasionally have some blood-streaked stool due to history of hemorrhoids. She does occasionally have constipation and will take MiraLax. She denies any family history of inflammatory bowel disease. Patient does have frequent headaches that originate from the base of her skull and radiate up to her left zoroastrian. She does admit to having forward head position. She is seen at a chiropractor and massage therapist regarding her headaches. Since her headaches were not improving she does have an outpatient follow-up scheduled with Neurology. Review of Systems Review of Systems: 12 systems were reviewed with pertinent positives and negatives per HPI. Except as documented in the HPI, all other systems were reviewed and are negative. [facility] Past Medical History Medical History (Updated 10/22/22 @ 07:31 by Brenda Patel DO) Anxiety Chronic headache Depression Familial hyperlipidemia Hypothyroidism Surgical History Surgical History No pertinent past surgical history Family History Family History Daughter Asthma Father History of blood clots Hypertension Familial hyperlipidemia Sibling Leukemia Social History Social History (Updated 10/22/22 @ 07:33 by Brenda Patel DO) Social History: She is and lives at home with her 3 children ages 16, 9 and 7 years old. 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 She quit smoking at age 27. She currently has a steady boyfriend but he does not live with with her. Smoking packs per day: 0.5 Smoking cigarettes per day: 10.0 Years smoked: 9 Smoking pack-years: 4.50 Smoking status: Former smoker Smoking end date: 11/29/11 Alcohol intake: never Substance use: never Lack of Transportation: No Lack of Food: Never True Current Housing: I Have Housing Concerned About Future Housing: No Difficulty Paying Gas/Electric Bills: No Difficulty Paying for Meds: No Currently Unemployed: No Education: High School Diploma/GED Difficulty w/ Childcare or Family Care: No Spiritual care concerns: No Meds Home Medications and Allergies Home Medications
[2022-10-22 01:52] VITALS: BP 137/74; PULSE 64; RESP 21; O2SAT 100
[2022-10-22 01:59] VITALS: BMI 29.0
[2022-10-22] MEDS: ACETAMINOPHEN 325 MG TABLET 650 MG PO (03:34)
[2022-10-22] MEDS: LEVOTHYROXINE SODIUM 50 MCG TABLET PO (05:37)
[2022-10-22 06:00] VITALS: BP 127/76; PULSE 69; RESP 21; TEMP 36.4; O2SAT 100
[2022-10-22 07:23] LABS: Hematocrit 34.2 % (37.0-47.0); Hemoglobin 11.1 g/dL (12.0-15.0); Mean Corpuscular HGB Conc 32.5 g/dl (32-36); Mean Corpuscular Hemoglobin 28.2 pg (26-34); Mean Corpuscular Volume 86.8 fl (80-100); Mean Platelet Volume 9.4 fl (7.4-10.4); Platelet Count Result 215 k/mm3 (150-375); Red Blood Count 3.94 M/mm3 (4.2-5.4); Red Cell Distribution Width 12.8 % (11.5-14.5); White Blood Count 8.8 K/mm3 (4.5-10.0)
[2022-10-22 07:43] LABS: Anion Gap 4 mmol/L (8-16); Blood Urea Nitrogen 6 mg/dL (7-17); Calcium 7.6 mg/dL (8.4-10.2); Carbon Dioxide 24 mmol/L (22-30); Chloride 109 mmol/L (98-107); Estimated CRCL calculation 80 ml/min; Estimated Glomerular Filt Rate > 60; Glucose 87 mg/dL (65-110); Potassium 3.8 mmol/L (3.4-5.0); Sodium 137 mmol/L (137-145)
[2022-10-22] MEDS: SERTRALINE HCL 50 MG TABLET 100 MG PO (08:31)
[2022-10-22] MEDS: MORPHINE SULFATE (*CRX) 4 MG/ML INJ IV PUSH ×2 (08:31→13:08)
[2022-10-22] MEDS: ROSUVASTATIN 10 MG TABLET 40 MG PO (08:31)
--- NOTE | 2022-10-22 09:55 | PM.IMPN ---
Progress Note: A&P Assessment and Plan (1) Enterocolitis: Code(s): K52.9 - Noninfective gastroenteritis and colitis, unspecified Status: Acute Assessment and Plan: Continue IV fluids Patient tolerating liquid diet Has not had diarrhea since yesterday ( 10/21/2022) Differential diagnosis: Food-borne illness versus bacterial versus viral versus inflammatory colitis Continue Zosyn and adjust antibiotics accordingly pending stool culture results Zofran p.r.n. for nausea Tylenol for pain C diff and stool culture pending Plan: Consult GI White blood cell smear, Giardia, Cryptosporidium labs ordered CRP ordered CBC and CMP in the a.m. (2) Failure of outpatient treatment: Code(s): Z78.9 - Other specified health status Status: Acute Assessment and Plan: see above (3) Hypothyroidism: Code(s): E03.9 - Hypothyroidism, unspecified Status: Acute Assessment and Plan: continue levothyroxine (4) Familial hyperlipidemia: Code(s): E78.49 - Other hyperlipidemia Status: Acute Assessment and Plan: continue Crestor Time Spent With Patient Time with patient: Greater than 35 minutes Subjective Date/time seen: 10/22/22 09:55 Interval history: 37-year-old female with a history of hypothyroid and hyperlipidemia presents to the ER with bloody diarrhea. Patient diagnosed with enterocolitis and admitted into observation. Patient started on IV Zosyn and stool studies have been sent to the lab. Patient states that she has not had diarrhea since yesterday. Patient is still having some abdominal discomfort and nausea but no vomiting. Patient denies chest pain, shortness of breath, fever, swelling in her lower extremities. Review of Systems Review of Systems: All systems reviewed & are unremarkable except as noted in HPI and below Exam Narrative: GENERAL: Comfortable, no acute distress HENMT: moist mucous membranes EYES: EOM intact b/l NECK: no lymphadenopathy RESPIRATORY: clear to auscultation CARDIO: RRR GI: soft, nontender, bowel sounds present SKIN: no rashes EXTREMITIES: no edema, redness or tenderness Objective Data Vital Signs Vital Signs: Vital Signs - 24 hr 10/21/22 21:36 10/21/22 22:48 10/21/22 22:53 Temperature 98 F Pulse Rate 77 74 75 Respiratory Rate 18 Blood Pressure 139/85 136/79 141/85 H Pulse Oximetry 100 Oxygen Delivery Room Air 10/21/22 22:54 10/22/22 00:43 10/22/22 01:09 Temperature Pulse Rate 78 63 Respiratory Rate 16 Blood Pressure 132/81 132/69 Pulse Oximetry 98 Oxygen Delivery Room Air 10/22/22 01:52 10/22/22 06:00 Temperature 97.6 F Pulse Rate 64 69 Respiratory Rate 21 H 21 H Blood Pressure 137/74 127/76 Pulse Oximetry 100 100 Oxygen Delivery Intake/Output Intake/Output: Intake & Output 10/19/22 10/20/22 10/21/22 10/22/22 23:59 23:59 23:59 23:59 Intake Total 1000 750 Balance 1000 750 Meds/Results Medications: Active Medications Generic Name Dose Route Start Last Admin Trade Name Freq PRN Reason Stop Dose Admin Acetaminophen 650 mg 10/22/22 03:18 10/22/22 03:34 Acetaminophen 325 Mg Tablet PO 650 mg Q4H PRN Administration Pain Piperacillin/Tazobactam/Dextrose 3.375 gm in 50 mls @ 100 mls/hr 10/22/22 06:00 10/22/22 05:56 Zosyn 3.375 Gm/D5w 50ml Pm IVPB Infused Q6H MYKEL Infusion Sodium Chloride 1,000 mls @ 125 mls/hr 10/22/22 00:10 10/22/22 01:33 Normal Saline Iv IV CONT 125 mls/hr .Q8H MYKEL Administration Levothyroxine Sodium 50 mcg 10/22/22 06:30 10/22/22 05:37 Levothyroxine Sodium 50 Mcg Tablet PO 50 mcg DAILY@0630 MYKEL Administration Lorazepam 0.5 mg 10/22/22 01:42 Lorazepam (*Crx) 0.5 Mg Tablet PO DAILY PRN Anxiety Morphine Sulfate 4 mg 10/22/22 03:00 10/22/22 08:31 Morphine Sulfate (*Crx) 4 Mg/Ml Inj IV PUSH 4 mg Q3HR PRN Administration Pain Rated 7-10 Ondanset
[2022-10-22 10:46] LABS: CRP 2.6 mg/dL (<1.0)
[2022-10-22 15:19] VITALS: BP 125/74; PULSE 61; RESP 14; TEMP 37; O2SAT 100
[2022-10-22 19:49] VITALS: O2SAT 100
--- NOTE | 2022-10-22 20:12 | WPDGICN ---
Assessment and Plan Assessment and plan (1) Enterocolitis: Code(s): K52.9 - Noninfective gastroenteritis and colitis, unspecified Status: Acute Assessment and Plan: she is already feeling better with less pain on antibiotics stool sample ordered supportive care liquid diet (2) Blood in stool: Code(s): K92.1 - Melena Status: Acute Assessment and Plan: better monitor will do colonoscopy in few more weeks once she is fully recovered (3) Diarrhea: Code(s): R19.7 - Diarrhea, unspecified Status: Acute (4) Abdominal pain: Code(s): R10.9 - Unspecified abdominal pain Status: Acute Assessment and Plan: pain meds as needed, doing better (5) Nausea: Code(s): R11.0 - Nausea Status: Acute GI Consult Note Consult date/time: 10/22/22 20:12 Reason for consult: diarrhea, abdominal pain HPI: Erica Conroy is a 37 year old female with?past medical history of hypothyroidism and hyperlipidemia who came to the ER with 2 days of nausea vomiting and diarrhea.? she had dinner outside and then started with severe abdominal pain followed by dry heaves and diarrhea, then feeling lightheaded with cold sweats, pain described as contractions.?Also noted blood in stools. She came to the ER and discharged with oral antibiotics but got sicker then returned and finally admitted. CT scan reviewed and showed Abnormally thickened segment of distal small bowel and left colon, suspicious for infectious enterocolitis. Review of Systems Review of Systems: Gen.:+ chills ENT: Denies congestion Respiratory: Denies shortness of breath or cough CV: Denies chest pain or palpitations GI: See HPI denies burning, urgency, frequency or hematuria Musculoskeletal: Denies back pain or muscle pain Neuro: Denies numbness, tingling, weakness or focal weakness Skin: Denies rash Except as documented, all other systems reviewed and negative [facility] Past Medical History Medical History (Updated 10/22/22 @ 20:17 by Cayetano Hearn MD) Anxiety Blood in stool Chronic headache Depression Diarrhea Familial hyperlipidemia Hypothyroidism Nausea Surgical History Surgical History No pertinent past surgical history Family History Family History Daughter Asthma Father History of blood clots Hypertension Familial hyperlipidemia Sibling Leukemia Social History Social History (Updated 10/22/22 @ 07:33 by Brenda Patel DO) Social History: She is and lives at home with her 3 children ages 16, 9 and 7 years old. 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 She quit smoking at age 27. She currently has a steady boyfriend but he does not live with with her. Smoking packs per day: 0.5 Smoking cigarettes per day: 10.0 Years smoked: 9 Smoking pack-years: 4.50 Smoking status: Former smoker Smoking end date: 11/29/11 Alcohol intake: never Substance use: never Lack of Transportation: No Lack of Food: Never True Current Housing: I Have Housing Concerned About Future Housing: No Difficulty Paying Gas/Electric Bills: No Difficulty Paying for Meds: No Currently Unemployed: No Education: High School Diploma/GED Difficulty w/ Childcare or Family Care: No Spiritual care concerns: No Meds Home Medications and Allergies Home Medications Medication Instructions Recorded Confirmed Type levothyroxine 50 mcg tablet 50 mcg PO DAILY 08/15/22 10/22/22 History rosuvastatin 40 mg tablet 40 mg PO DAILY 08/15/22 10/22/22 History segesterone acet 0.15 mg-ethinyl 1 vag ring vaginal MONTHLY 08/15/22 10/22/22 History estradiol 0.013 mg/24 hr vaginal ring ([facility]) sertraline 50 mg tablet 100 mg PO DAILY 08/15/22 10/22/22 History ciprofloxacin HCl 500 mg tablet 500 mg PO Q12H 5 days #10
[2022-10-22 22:05] VITALS: BP 122/77; PULSE 60; RESP 21; TEMP 37.1; O2SAT 100
[2022-10-23] MEDS: SODIUM CHLORIDE 0.9% IV 1,000 ML 125 ML IV CONT (03:55)
[2022-10-23 05:11] LABS: Basophils Percent Auto 0.5 % (0.2-1.2); Eosinophils Absolute Auto 0.2 K/mm3 (0-0.3); Eosinophils Percent Auto 3.7 % (0-4.4); Immature Granulocyte Absolute 0.02 K/mm3 (0.00-0.031); Immature Granulocyte Percent A 0.3 % (0-0.5); Lymphocytes Absolute Auto 2.21 K/mm3 (0.9-3.2); Lymphocytes Percent Auto 33.9 % (18.3-44.2); Mean Corpuscular HGB Conc 32.4 g/dl (32-36); Mean Corpuscular Hemoglobin 28.4 pg (26-34); Mean Corpuscular Volume 87.6 fl (80-100); Mean Platelet Volume 9.8 fl (7.4-10.4); Monocytes Absolute Auto 0.4 K/mm3 (0.1-0.6); Monocytes Percent Auto 5.4 % (2.6-8.5); Neutrophils Absolute Auto 3.7 K/mm3 (1.3-6.7); Neutrophils Percent Auto 56.2 % (45.5-73.1); Platelet Count Result 219 k/mm3 (150-375); Red Blood Count 3.88 M/mm3 (4.2-5.4); Red Cell Distribution Width 12.9 % (11.5-14.5); White Blood Count 6.5 K/mm3 (4.5-10.0)
[2022-10-23 05:12] LABS: Alanine Aminotransferase 25 U/L (6-35); Alkaline Phosphatase 71 U/L (38-126); Anion Gap 4 mmol/L (8-16); Aspartate Amino Transferase 34 U/L (14-36); Bilirubin,Total 0.5 mg/dL (0.2-1.3); Blood Urea Nitrogen 4 mg/dL (7-17); Calcium 7.8 mg/dL (8.4-10.2); Carbon Dioxide 25 mmol/L (22-30); Chloride 111 mmol/L (98-107); Estimated CRCL calculation 80 ml/min; Estimated Glomerular Filt Rate > 60; Glucose 89 mg/dL (65-110); Magnesium 2.2 mg/dL (1.6-2.3); Potassium 3.8 mmol/L (3.4-5.0); Sodium 140 mmol/L (137-145)
[2022-10-23] MEDS: LEVOTHYROXINE SODIUM 50 MCG TABLET PO (05:38)
[2022-10-23] MEDS: ACETAMINOPHEN 325 MG TABLET 650 MG PO ×2 (05:42→10:02)
[2022-10-23 06:00] VITALS: BP 135/63; PULSE 59; RESP 20; TEMP 36.8; O2SAT 99
--- NOTE | 2022-10-23 06:56 | PC.NURSE ---
pt abt changed to flagyl and cipro IV this morning awaiting medication from pharmacy order placed at 645am
[2022-10-23] MEDS: metroNIDAZOLE 500 MG/ISO 100ML 500 MG/100 ML BAG 100 MG IVPB ×2 (07:43→13:18)
[2022-10-23 07:47] VITALS: RESP 20; O2SAT 99
[2022-10-23] MEDS: CIPROFLOXACIN 400 MG/D5W 200ML 200 ML 200 MG IVPB (08:53)
[2022-10-23] MEDS: SERTRALINE HCL 50 MG TABLET 100 MG PO (08:57)
[2022-10-23] MEDS: ROSUVASTATIN 10 MG TABLET 40 MG PO (08:58)
--- NOTE | 2022-10-23 10:35 | PM.DS ---
DS: Admitting Diagnosis Discharge Date 10/20/2022 Admitting Diagnosis colitis DS: Discharge Diagnosis Discharge Diagnosis (1) Enterocolitis: Code(s): K52.9 - Noninfective gastroenteritis and colitis, unspecified Status: Acute (2) Failure of outpatient treatment: Code(s): Z78.9 - Other specified health status Status: Acute (3) Hypothyroidism: Code(s): E03.9 - Hypothyroidism, unspecified Status: Acute (4) Familial hyperlipidemia: Code(s): E78.49 - Other hyperlipidemia Status: Acute DS: Summary Hospital Course Reason for hospitalization: colitis Hospital Course: 37-year-old with history of hypothyroidism, anxiety depression, and hyperlipidemia. Patient came to the ER on 10/22/2022 was discharged with Cipro she returned a couple hours later due to increase blood and was admitted to observation. white blood cell count of 13. Patient has a history of hemorrhoids stated this was a different type of bleeding. CT revealed thickened segment of the distal small bowel in the colon suspicious for infectious colitis. patient was started on Zosyn. C diff stool cultures were ordered. Patient had a CRP of 2.6. Patient's white count returned to normal. I additionally ordered white blood cell smear,giardia and Cryptosporidium but, patient did not have a bowel movement during her hospital stay. Antibiotics were changed to Cipro and metronidazole. Patient's nausea had subsided during her stay. C diff was not ran due to the consistency of patient's stool indicating patient does not have C diff. Stool cultures are pending. GI had seen patient and is agreeable to a follow-up in a couple weeks. Status at Discharge Functional status at discharge: independent ambulation Overall status at discharge: patient is progressing back to baseline Time Spent with Patient Time attestation: Total time spent providing and/or coordinating discharge services: Time spent: Greater than 30 minutes Exam Narrative: GENERAL: Comfortable, no acute distress HENMT: moist mucous membranes EYES: EOM intact b/l NECK: no lymphadenopathy RESPIRATORY: clear to auscultation CARDIO: RRR GI: soft, mild tenderness to lower abdomen, bowel sounds present SKIN: no rashes EXTREMITIES: no edema, redness or tenderness DS: Data Data Completed and Pending Labs on day of discharge: Labs from last 24 hours 10/23/22 10/23/22 10/22/22 04:51 04:51 07:15 WBC 6.5 RBC 3.88 L Hgb 11.0 L Hct 34.0 L MCV 87.6 MCH 28.4 MCHC 32.4 RDW 12.9 Plt Count 219 MPV 9.8 Immature Gran % (Auto) 0.3 Neut % (Auto) 56.2 Lymph % (Auto) 33.9 [place] % (Auto) 5.4 Eos % (Auto) 3.7 Baso % (Auto) 0.5 Lymph # (Auto) 2.21 [place] # (Auto) 0.4 Eos # (Auto) 0.2 Baso # (Auto) 0.0 Abs Immat Gran (auto) 0.02 Absolute Neuts (auto) 3.7 Absolute Nucleated RBC 0.0 Nucleated RBC % 0.0 Sodium 140 Potassium 3.8 Chloride 111 H Carbon Dioxide 25 Anion Gap 4 L BUN 4 L Creatinine 1.00 Estim Creat Clear Calc 80 Estimated GFR > 60 Glucose 89 Calcium 7.8 L Magnesium 2.2 Total Bilirubin 0.5 AST 34 ALT 25 Alkaline Phosphatase 71 C-Reactive Protein 2.6 H Total Protein 6.0 L Albumin 3.0 L Discharge Plan Discharge Attending physician on discharge: Yuriy De Santiago Consulting providers: Cayetano Hearn Discharging Clinician: Yany Nielsen Anticipated Discharge Date/Time: 10/23/22 12:46 Patient Disposition: Home, Self-Care Activity: as tolerated Diet: bland Discharge Instructions: Follow-up with Dr. Hearn on an outpatient basis Seek immediate care if: If you abdomen is hard or feels swollen You have black or bright red bowel movements You vomit blood Her sugar breath artery filling care going to faint If you have any of the on signs of dehydration: dizzines
[2022-10-23 11:30] LABS: CRP 3.1 mg/dL (<1.0)
== END 2022-10-23 15:07 | disposition home or self-care (01) ==
LOC: ANHED 10-22 00:12 → ANH2MED 10-22 00:50
PROVIDERS: Internal Medicine Critical Care Medicine; Admitting Provider Internal Medicine; Emergency Provider Emergency Medicine; PCP Emergency Medicine; Visit Provider Internal Medicine
DX: K52.9 Noninfective gastroenteritis and colitis, unspecified (principal); Z78.9 Other specified health status; E03.9 Hypothyroidism, unspecified; E78.49 Other hyperlipidemia; K92.1 Melena; R10.9 Unspecified abdominal pain; R11.2 Nausea with vomiting, unspecified; Z30.49 Encounter for surveillance of other contraceptives; F41.9 Anxiety disorder, unspecified; F32.A Depression, unspecified; G43.909 Migraine, unspecified, not intractable, without status migrainosus; Z87.891 Personal history of nicotine dependence; Z79.899 Other long term (current) drug therapy
CPT/HCPCS: 36415; 80048; 80053; 83605; 83690; 83735; 85025; 85027; 86140; 87045; 87427; 96361; 96365; 96366; 96367; 96374; 96375; 96376; 99285; A9270; G0378; G0379; J0744; J2270; J2405; J2543; J7030

== ENCOUNTER 2022-11-17 01:12 | Day surgery (SDC) | payer OTHER, SELFPAY ==
[2022-11-04 14:44] VITALS: BMI 28.8
[2022-11-17 12:57] VITALS: BP 137/73; PULSE 71; RESP 18; TEMP 36.4; O2SAT 100
[2022-11-17] MEDS: LACTATED RINGERS 1,000 ML 150 ML IV CONT (13:10)
--- NOTE | 2022-11-17 13:14 | WPDANESEPPF ---
Anes - Initial Pre Proc Eval Procedure: Operation Date: 11/17/22 14:30 Proposed Procedures p Colonoscopy - Cayetano Hearn MD Date/Time: 11/17/22 13:14 Surgeon: Cayetano Hearn MD Pre Op Diagnosis: colitis Patient Data Age: 37 Gender: F Height: 1.73 m Weight: 83 kg Last Vital Signs Temp 36.4 C L 11/17/22 12:57 Pulse 71 11/17/22 12:57 Resp 18 11/17/22 12:57 BP 137/73 11/17/22 12:57 Pulse Ox 100 11/17/22 12:57 O2 Del Method Room Air 11/17/22 12:57 Allergies Allergy/AdvReac Type Severity Reaction Status Date / Time pertussis vaccine,fluid Allergy Severe BRAIN Verified 11/17/22 12:56 SWELLING Home Medications Medication Instructions Recorded Confirmed Type levothyroxine 50 mcg tablet 50 mcg PO DAILY 08/15/22 11/04/22 History rosuvastatin 40 mg tablet 40 mg PO DAILY 08/15/22 11/04/22 History segesterone acet 0.15 mg-ethinyl 1 vag ring vaginal MONTHLY 08/15/22 11/04/22 History estradiol 0.013 mg/24 hr vaginal ring (Annovera) sertraline 50 mg tablet 100 mg PO DAILY 08/15/22 11/04/22 History loratadine 10 mg tablet (Claritin) 10 mg PO DAILY PRN Allergy Symptoms 10/22/22 11/04/22 History lorazepam 0.5 mg tablet 0.5 mg PO DAILY PRN Anxiety 10/22/22 11/04/22 History Patient hx anesthesia problems: none Family hx anesthesia problems: none Results Review: All pre-operative results and documents have been reviewed as part of the pre-operative evaluation. [facility] Past Medical History Medical History (Updated 10/22/22 @ 20:17 by Cayetano Hearn MD) Anxiety Blood in stool Chronic headache Depression Diarrhea Familial hyperlipidemia Hypothyroidism Nausea Surgical History Surgical History No pertinent past surgical history Family History Family History Daughter Asthma Father History of blood clots Hypertension Familial hyperlipidemia Sibling Leukemia Social History Social History (Updated 10/22/22 @ 07:33 by Brenda Patel DO) Social History: She is and lives at home with her 3 children ages 16, 9 and 7 years old. 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 She quit smoking at age 27. She currently has a steady boyfriend but he does not live with with her. Smoking packs per day: 0.5 Smoking cigarettes per day: 10.0 Years smoked: 10 Smoking pack-years: 5.00 Smoking status: Former smoker Tobacco type: cigarettes Smoking end date: 11/29/11 Alcohol intake: never Substance use: never Lack of Transportation: No Lack of Food: Never True Current Housing: I Have Housing Concerned About Future Housing: No Difficulty Paying Gas/Electric Bills: No Difficulty Paying for Meds: No Currently Unemployed: No Education: High School Diploma/GED Difficulty w/ Childcare or Family Care: No Living arrangements: with family Spiritual care concerns: No Anes - Eval Final PreProcedure Day of Procedure 11/17/22 13:14 Patient weight: overweight Heart: regular rate and rhythm Lungs: clear to auscultation and normal air movement Airway: Mallampati scale class II Neurological: alert and oriented Last oral intake: >/= 8 hours ASA classification: II Emergent: no Anesthetic plan: proceed Anesthesia type and monitoring: general GIVS Results Review: All pre-operative results and documents have been reviewed as part of the pre-operative evaluation. Informed Consent: The patient's anesthetic plan and its attendant risks and benefits were discussed with the patient/family/POA. Questions were solicited and answers provided to the satisfaction of the patient/family/POA.
--- NOTE | 2022-11-17 13:29 | WPDHPUPDATE1 ---
History and Physical Update Update Date/Time: 11/17/22 13:29 History and Physical has been reviewed, including an updated exam of the patient. There are NO changes in the patient's condition. Risks, benefits, and alternatives have been discussed and questions answered. Patient agrees to proceed with procedure.
[2022-11-17 13:47] VITALS: BP 115/76; PULSE 61; RESP 19; O2SAT 100
[2022-11-17 13:57] VITALS: BP 128/85; PULSE 58; RESP 18; O2SAT 100
[2022-11-17 14:07] VITALS: BP 135/93; PULSE 57; RESP 17; O2SAT 100
== END 2022-11-17 14:12 | disposition home or self-care (01) ==
PROVIDERS: PCP Emergency Medicine; Visit Provider Internal Medicine Gastroenterology
PROC: 0DJD8ZZ Inspection of Lower Intestinal Tract, Via Natural or Artificial Opening Endoscopic (ICD-10-PCS; CPT 45378; principal; 2022-11-17 14:30)
DX: Z09 Encounter for follow-up examination after completed treatment for conditions other than malignant neoplasm (principal); K64.8 Other hemorrhoids; Z87.19 Personal history of other diseases of the digestive system; E03.9 Hypothyroidism, unspecified; E78.5 Hyperlipidemia, unspecified; F41.9 Anxiety disorder, unspecified; F32.A Depression, unspecified; Z87.891 Personal history of nicotine dependence
CPT/HCPCS: 45378; J2704; J7120

== ENCOUNTER 2023-04-09 14:36 | Emergency (ER) | payer OTHER, SELFPAY ==
--- NOTE | ~2023-04-09 | XR_ITS ---
EXAMINATION: XR chest 2V 04/09/2023 15:28 INDICATION: Chest pain and weakness with shortness of breath. PROCEDURE: 2 view chest COMPARISON: 06/04/2022 FINDINGS: The lungs are clear. The cardiomediastinal silhouette is within normal limits. There are no pleural effusions. There is no pneumothorax suspected. IMPRESSION: 1: NO ACUTE CARDIOPULMONARY DISEASE. Reviewed, dictated and finalized at location B.
[2023-04-09 14:38] VITALS: BP 162/90; PULSE 66; RESP 14; TEMP 36.8; O2SAT 100
--- NOTE | 2023-04-09 14:41 | ECG_ITS ---
Measurements Intervals [place] Rate: 65 P: 52 [place]: 157 QRS: 6 QRSD: 89 T: 23 QT: 404 QTc: 420 Interpretive Statements SINUS RHYTHM DELAYED PRECORDIAL R/S TRANSITION BASELINE ARTIFACT- I, II BORDERLINE ECG COMPARED TO ECG 06/04/2022 11:55:24 NO SIGNIFICANT CHANGES Electronically Signed On 04-09-2023 15:24:29 CDT by Jorge Hall D.O.
[2023-04-09] MEDS: ASPIRIN 81 MG CHEWABLE TABLET 324 MG PO (14:56)
[2023-04-09 14:59] LABS: Basophils Absolute Auto 0.1 K/mm3 (0.0-0.1); Basophils Percent Auto 0.7 % (0.2-1.2); Eosinophils Absolute Auto 0.2 K/mm3 (0-0.3); Eosinophils Percent Auto 2.2 % (0-4.4); Hematocrit 39.5 % (37.0-47.0); Immature Granulocyte Absolute 0.03 K/mm3 (0.00-0.031); Immature Granulocyte Percent A 0.3 % (0-0.5); Lymphocytes Absolute Auto 2.73 K/mm3 (0.9-3.2); Mean Corpuscular HGB Conc 32.9 g/dl (32-36); Mean Corpuscular Hemoglobin 28.6 pg (26-34); Mean Platelet Volume 9.7 fl (7.4-10.4); Monocytes Absolute Auto 0.4 K/mm3 (0.1-0.6); Monocytes Percent Auto 4.7 % (2.6-8.5); Neutrophils Absolute Auto 5.4 K/mm3 (1.3-6.7); Neutrophils Percent Auto 61.1 % (45.5-73.1); Platelet Count Result 279 k/mm3 (150-375); Red Blood Count 4.54 M/mm3 (4.2-5.4); Red Cell Distribution Width 13.1 % (11.5-14.5); White Blood Count 8.8 K/mm3 (4.5-10.0)
[2023-04-09 15:06] LABS: INR 0.9; Prothrombin Time 12.9 Seconds (11.1-14.7)
[2023-04-09 15:07] LABS: Alanine Aminotransferase 14 U/L (6-35); Albumin Level 4.4 g/dL (3.5-5.1); Alkaline Phosphatase 85 U/L (38-126); Anion Gap 1 mmol/L (8-16); Aspartate Amino Transferase 19 U/L (14-36); Bilirubin,Total 0.5 mg/dL (0.2-1.3); Blood Urea Nitrogen 15 mg/dL (7-17); Calcium 9.1 mg/dL (8.4-10.2); Carbon Dioxide 25 mmol/L (22-30); Chloride 109 mmol/L (98-107); Estimated CRCL calculation 88 ml/min; Estimated Glomerular Filt Rate > 60; Glucose 89 mg/dL (65-110); Lipase 122 U/L (23-300); Partial Thromboplastin Time 29.4 SECONDS (22.3-36.8); Potassium 3.6 mmol/L (3.4-5.0); Sodium 135 mmol/L (137-145)
--- NOTE | 2023-04-09 15:14 | ED.CHESTPAIN ---
HPI - Chest Pain General Chief Complaint: Chest Pain Stated Complaint: left sided numbness Time Seen by Provider: 04/09/23 14:58 History of Present Illness HPI narrative: 37-year-old female history of hypothyroidism, anxiety, dyslipidemia presents to the emergency room for evaluation of left-sided chest pain that began at 7:00 this morning. States patient states pain has been intermittent, radiates into neck and left arm. States pain lasts for several minutes and resolves without any intervention. Denies any alleviating or aggravating factors. Patient states that she also became short of breath and near syncopal while at work. Patient admits that she is under significant amount of stress at home and within the workplace. Patient is also complaining of left facial numbness, with left-sided headache. All symptoms have resolved upon arrival. Related Data Home Medications Medication Instructions Recorded Confirmed levothyroxine 50 mcg tablet 50 mcg PO DAILY 08/15/22 11/04/22 rosuvastatin 40 mg tablet 40 mg PO DAILY 08/15/22 11/04/22 segesterone acet 0.15 mg-ethinyl 1 vag ring vaginal MONTHLY 08/15/22 11/04/22 estradiol 0.013 mg/24 hr vaginal ring (Annovera) sertraline 50 mg tablet 100 mg PO DAILY 08/15/22 11/04/22 loratadine 10 mg tablet (Claritin) 10 mg PO DAILY PRN Allergy Symptoms 10/22/22 11/04/22 lorazepam 0.5 mg tablet 0.5 mg PO DAILY PRN Anxiety 10/22/22 11/04/22 Allergies Allergy/AdvReac Type Severity Reaction Status Date / Time pertussis vaccine,fluid Allergy Severe BRAIN Verified 11/17/22 12:56 SWELLING Review of Systems Review of Systems: CONSTITUTIONAL: Denies fever, chills, or sweats. EYES: Denies visual changes, redness, or discharge. ENT: Denies rhinorrhea, congestion, sore throat, or otalgia. CARDIOVASCULAR: Per HPI, chest pain, and palpitations RESPIRATORY: Denies cough or dyspnea. GASTROINTESTINAL: Denies abdominal pain, nausea, vomiting, or diarrhea. GENITOURINARY: Denies dysuria or hematuria. SKIN: Denies rash or itching. MUSCULOSKELETAL: Denies back pain, joint pain, or myalgia. NEUROLOGIC: Denies headache, numbness, dizziness, or weakness. PSYCHIATRIC: Denies anxiety or depression. [facility] Past Medical History Medical History Anxiety Blood in stool Chronic headache Depression Diarrhea Familial hyperlipidemia Hypothyroidism Nausea Surgical History Surgical History No pertinent past surgical history Family History Family History Daughter Asthma Father History of blood clots Hypertension Familial hyperlipidemia Sibling Leukemia Social History Social History Social History: She is and lives at home with her 3 children ages 16, 9 and 7 years old. 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 She quit smoking at age 27. She currently has a steady boyfriend but he does not live with with her. Smoking packs per day: 0.5 Smoking cigarettes per day: 10.0 Years smoked: 10 Smoking pack-years: 5.00 Smoking status: Former smoker Tobacco type: cigarettes Smoking end date: 11/29/11 Alcohol intake: never Substance use: never Lack of Transportation: No Lack of Food: Never True Current Housing: I Have Housing Concerned About Future Housing: No Difficulty Paying Gas/Electric Bills: No Difficulty Paying for Meds: No Currently Unemployed: No Education: High School Diploma/GED Difficulty w/ Childcare or Family Care: No Living arrangements: with family Spiritual care concerns: No Exam Narrative: GENERAL: Well-appearing, well-nourished, no physical limitations, and in no acute distress. HEAD: Normocephalic, atraumatic. EYES: Conjunctivae normal, PERRLA and EOMI. NECK: Supple. CHES
[2023-04-09 15:18] LABS: Troponin I < 0.012 ng/mL (0.000-0.034)
[2023-04-09] MEDS: SODIUM CHLORIDE 0.9% IV 1,000 ML 999 ML IV CONT (15:23)
[2023-04-09] MEDS: LORazepam INJ (*CRX) 2 MG/ML VIAL 1 MG IV PUSH (15:23)
[2023-04-09 15:30] VITALS: BP 126/87; PULSE 60; RESP 16; O2SAT 99
[2023-04-09 15:41] LABS: D Dimer 0.34 ug/mL (<0.48)
[2023-04-09 16:30] VITALS: BP 134/73; PULSE 64; RESP 16; O2SAT 100
[2023-04-09 17:30] VITALS: BP 132/81; PULSE 68; RESP 16; O2SAT 97
[2023-04-09 18:01] LABS: Troponin I < 0.012 ng/mL (0.000-0.034)
[2023-04-09 18:16] VITALS: BP 144/81; PULSE 72; RESP 16; O2SAT 98
== END 2023-04-09 18:47 | disposition home or self-care (01) ==
PROVIDERS: Emergency Medicine; Emergency Provider Nurse Practitioner Family; PCP Emergency Medicine
DX: F41.9 Anxiety disorder, unspecified (principal); R07.89 Other chest pain; E03.9 Hypothyroidism, unspecified; F32.A Depression, unspecified; E78.49 Other hyperlipidemia; Z87.891 Personal history of nicotine dependence
CPT/HCPCS: 36415; 71046; 80053; 83690; 84484; 85025; 85380; 85610; 85730; 93005; 96361; 96374; 99284; A9270; J2060; J7030

== ENCOUNTER 2023-09-21 09:54 | Outpatient (CLI) | payer BC, SELFPAY | END 2023-09-21 09:55 | disposition home or self-care (01) | PROVIDERS: PCP Emergency Medicine; Visit Provider Emergency Medicine | DX: M25.562 Pain in left knee (principal); M25.561 Pain in right knee | CPT/HCPCS: 73564 ==

== ENCOUNTER 2024-06-28 13:47 | Emergency (ER) | payer BC, SELFPAY ==
--- NOTE | ~2024-06-28 | CT_ITS ---
EXAMINATION: CT abdomen pelvis w con DATE: 06/28/2024 15:28 INDICATION: Right flank pain. Right lower quadrant abdominal pain. TECHNIQUE: Computed tomography (CT) of the abdomen and pelvis was performed with 100 mL Omnipaque 350 intravenous contrast. Automated exposure control and iterative reconstruction technique were employe d. The dose-length product was 740.29 mGy-cm. COMPARISON: CT abdomen and pelvis 10/21/2022 FINDINGS: The visualized portions of the lung bases are clear without pneumonia or pleural effusion. The heart size is normal. No pericardial effusion. The liver, gallbladder, spleen, pancreas, and adre nal glands are normal. There are two stones in right kidney measuring up to 4 mm. There are three sto madhuri in left kidney measuring up to 5 mm. There is an umbilical hernia containing fat. There are no di lated loops of bowel. The appendix is normal. There are no pathologically enlarged lymph nodes. There is no free intraperitoneal fluid. There is mild thoracic and lumbar spondylosis. IMPRESSION: 1. Bilateral nonobstructing kidney stones. 2. Umbilical hernia containing fat. Reviewed, dictated and finalized at location A.
[2024-06-28 13:49] VITALS: BP 149/82; PULSE 74; RESP 16; TEMP 36.8; O2SAT 100
[2024-06-28 14:06] LABS: Basophils Absolute Auto 0.1 K/mm3 (0.0-0.1); Basophils Percent Auto 0.7 % (0.2-1.2); Eosinophils Absolute Auto 0.1 K/mm3 (0-0.3); Eosinophils Percent Auto 1.6 % (0-4.4); Hematocrit 43.4 % (37.0-47.0); Hemoglobin 13.9 g/dL (12.0-15.0); Immature Granulocyte Absolute 0.02 K/mm3 (0.00-0.031); Immature Granulocyte Percent A 0.2 % (0-0.5); Lymphocytes Percent Auto 32.4 % (18.3-44.2); Mean Corpuscular Hemoglobin 27.9 pg (26-34); Mean Corpuscular Volume 87.1 fl (80-100); Mean Platelet Volume 9.6 fl (7.4-10.4); Monocytes Absolute Auto 0.4 K/mm3 (0.1-0.6); Monocytes Percent Auto 4.5 % (2.6-8.5); Neutrophils Absolute Auto 5.2 K/mm3 (1.3-6.7); Neutrophils Percent Auto 60.6 % (45.5-73.1); Platelet Count Result 275 k/mm3 (150-375); Red Blood Count 4.98 M/mm3 (4.2-5.4); Red Cell Distribution Width 13.5 % (11.5-14.5); White Blood Count 8.6 K/mm3 (4.5-10.0)
[2024-06-28 14:16] LABS: Alanine Aminotransferase 11 U/L (6-35); Albumin Level 4.7 g/dL (3.5-5.1); Alkaline Phosphatase 86 U/L (38-126); Anion Gap 12 mmol/L (4-12); Aspartate Amino Transferase 19 U/L (14-36); Bilirubin,Total 0.7 mg/dL (0.2-1.3); Blood Urea Nitrogen 13 mg/dL (7-17); Calcium 9.1 mg/dL (8.4-10.2); Carbon Dioxide 25 mmol/L (22-30); Chloride 100 mmol/L (98-107); Estimated CRCL calculation 82 ml/min; Estimated Glomerular Filt Rate > 60; Glucose 89 mg/dL (65-110); Lipase 139 U/L (23-300); Potassium 3.9 mmol/L (3.4-5.0); Sodium 137 mmol/L (137-145)
[2024-06-28 14:19] LABS: BEDSIDEPREGUCG Negative
[2024-06-28 14:40] LABS: Add Urine Microscopic? YES; Appearance Urine Cloudy (Clear); Bacteria Urine 3+ /hpf; Bilirubin Urine Negative (Negative); Blood Urine Negative (Negative); Color Urine Yellow (Yellow); Glucose Urine UA Negative (Negative); Ketones Urine Negative (Negative); Leukocyte Esterase Ur 1+ LEU/UL (Negative); Need Manual Microscopic Reviewed; Nitrate Urine Negative (Negative); Non Pathogenic Casts 0-2; Protein Urine Negative (Negative); Specific Grav Ur 1.017 (1.001-1.035); Squamous Epithelial Cell Urine Moderate /hpf (Few); Urobilinogen Urine 0.2 mg/dL (<2.0)
--- NOTE | 2024-06-28 15:01 | ED.ABDPAIN ---
HPI - Abdominal Pain General Chief Complaint: Abdominal Pain <LUCINA Feliz Last Filed: 06/28/24 15:06> Stated Complaint: abd pain <LUCINA Feliz Last Filed: 06/28/24 15:06> Time Seen by Provider: 06/28/24 15:01 <LUCINA Feliz Last Filed: 06/28/24 15:06> Focused HPI: Patient is a 38 y/o female who presents to the ED w/ c/o R flank pain. Patient reports having R flank pain for the past 2 days. Went to her PCP today and was noted to have significant tenderness throughout her R lower abdomen on exam. She was then referred here for further evaluation. Reports pain is intermittent with sharp waves of pain, occ worse with movement. She has not taken anything for the pain. Reports nausea, denies vomiting, diarrhea, constipation, dysuria, hematuria. GENERAL: Well-appearing, obese with BMI of 31.1, and in no acute distress. HEAD: Normocephalic, atraumatic. CHEST: Clear to auscultation. ?No respiratory distress. HEART: Regular rate and rhythm.? ABD: TTP in R mid and lower abdomen. No rebound. NEURO: ?Alert and oriented x3. Patient screened in triage and initial orders placed.? ?Additional care and disposition to be based upon?diagnostic testing and treatment. <Sunshine Prince PA-C - Last Filed: 06/28/24 15:06> Source: patient <LUCINA Feliz Last Filed: 06/28/24 15:06> Mode of arrival: ambulatory <LUCINA Feliz Last Filed: 06/28/24 15:06> Limitations: no limitations <LUCINA Feliz Last Filed: 06/28/24 15:06> History of Present Illness HPI narrative: Agree with the above with the following additions/corrections: Patient has been having right flank pain 2 days duration. She also been having fatigue. She had a night of drinking alcohol on Wednesday and this might be related. In addition she is having abdominal pain and she notes that it feels like the pain is traveling her back into her right abdomen and down into her right groin. She has had abdominal pain before in the setting colitis but states that this feels different. She does follow with a rvda master certified rv technician and has had of prior colonoscopy. She is also having pain that radiates into her shoulder. Her symptoms are associated with nausea yesterday but better today; no vomiting. Last bowel movement was this morning and she denies any diarrhea, constipation, or blood. She denies any vaginal bleeding. Her last menstrual period was 06/20/2024 and she had some lingering vaginal discharge but notes that this is not unusual at the tail end of her menses. No dysuria, hematuria but she has been having urinary frequency. However, she states that she has been drinking water and had attributed to this. History of urinary tract infections when she was younger. No history of kidney stones. No prior abdominal surgeries, continues to pass flatus. <Ruth Brown MD - Last Filed: 06/29/24 10:33> Related Data Home Medications: Home Medications Medication Instructions Recorded Confirmed levothyroxine 50 mcg tablet 50 mcg PO DAILY 08/15/22 11/04/22 rosuvastatin 40 mg tablet 40 mg PO DAILY 08/15/22 11/04/22 segesterone acet 0.15 mg-ethinyl 1 vag ring vaginal MONTHLY 08/15/22 11/04/22 estradiol 0.013 mg/24 hr vaginal ring (Annovera) sertraline 50 mg tablet 100 mg PO DAILY 08/15/22 11/04/22 loratadine 10 mg tablet (Claritin) 10 mg PO DAILY PRN Allergy Symptoms 10/22/22 11/04/22 lorazepam 0.5 mg tablet 0.5 mg PO DAILY PRN Anxiety 10/22/22 11/04/22 <Sunshine Prince PA-C - Last Filed: 06/28/24 15:06> Allergies/Adverse Reactions: Allergies Allergy/AdvReac Type Severity Reaction Status Date / Time pertussis vaccine,fluid Allergy Severe BRAIN Verified 06/28/24 13:53 SWELLING <Sunshine Prince PA-C - Last Filed: 06/28/24 15:06> [facility] Past Medical History Medical History: Medical History (Reviewed 04/09/23 @ 15:16 b
[2024-06-28] MEDS: TAMSULOSIN HCL 0.4 MG CAPSULE PO (16:41)
[2024-06-28] MEDS: ONDANSETRON INJ 4 MG/2 ML VIAL IV PUSH (16:42)
[2024-06-28] MEDS: HYDROcodone/acetaminophen (*CRX) 5-325 MG TABLET 1 TAB PO (16:42)
[2024-06-28] MEDS: KETOROLAC 15 MG/ML VIAL (*BKC) IV PUSH (16:42)
[2024-06-28 16:44] VITALS: BP 123/71; PULSE 53; RESP 12; O2SAT 97
== END 2024-06-28 17:13 | disposition home or self-care (01) ==
PROVIDERS: Emergency Provider Student in an Organized Health Care Education/Training Program; PCP Emergency Medicine
DX: N20.0 Calculus of kidney (principal); N39.0 Urinary tract infection, site not specified; K42.9 Umbilical hernia without obstruction or gangrene; E03.9 Hypothyroidism, unspecified; E78.49 Other hyperlipidemia; F32.A Depression, unspecified; F41.9 Anxiety disorder, unspecified; Z87.891 Personal history of nicotine dependence
CPT/HCPCS: 36415; 74177; 80053; 81001; 81025; 83690; 85025; 87086; 96365; 96375; 99284; A9270; J0696; J1885; J2405; Q9967